=== PATIENT | male | born 1950 | race Caucasian/White ===

== ENCOUNTER 2016-03-07 15:31 | Emergency (ER) | payer MEDICARE, OTHER ==
--- NOTE | 2016-03-07 16:46 | CT ---
Exam: CT abdomen and pelvis without contrast COMPARISON: None INDICATION: Fall from 3 feet, landing on concrete floor. Low back pain. Pain in right hip, increasing with ambulation. TECHNIQUE: CT examination of the abdomen and pelvis was obtained without contrast using a renal stone protocol. FINDINGS: There is a comminuted fracture involving the right acetabulum, with a primary transverse component, involving the iliopectineal line as well as the anterior column and roof. Posterior wall or iliac wing involvement is not seen. No additional pelvic fracture is identified. Small joint effusion is seen on the right. Hip alignment is normal, and no femur fracture is identified. Sagittal alignment is maintained in the spine. No fracture is identified within the lumbar spine. Facet arthropathy is seen within the lower lumbar spine greatest at the lumbosacral junction on the right. No significant pelvic hematoma is identified. Urinary bladder is unremarkable. There is a moderate amount of stool throughout the colon without evidence of obstruction. 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 The appendix is normal. Mild prominent lymph nodes at the root of the mesentery are noted, measuring up to 9 mm in short axis diameter, and are uncertain significance. No additional notable lymph nodes are identified. The liver, spleen, pancreas, kidneys, adrenal glands and gallbladder all unremarkable as noncontrast exam. Lung bases are clear. IMPRESSION: 1. Nondisplaced right acetabular fracture as detailed above. 2. No fracture is identified within the lumbar spine. 3. No acute intra-abdominal pathology. 4. Mildly prominent mesenteric lymph nodes which are of uncertain etiology and significance. Report called to Dr. Olvera 1642 hours 03/07/2016.
== END 2016-03-07 18:51 | disposition home or self-care (01) ==
LOC: ED 15:31
DX: S32.401A Unspecified fracture of right acetabulum, initial encounter for closed fracture (principal); E10.9 Type 1 diabetes mellitus without complications; Z79.4 Long term (current) use of insulin; W18.30XA Fall on same level, unspecified, initial encounter; Y92.9 Unspecified place or not applicable